=== PATIENT | female | born 1990 | race Caucasian/White ===

== ENCOUNTER 2020-04-10 22:58 | Emergency (ER) | payer OTHER ==
[2020-04-10 23:08] VITALS: TEMP 98.8
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
[2020-04-11 00:06] VITALS: RESP 18
[2020-04-11 00:12] LABS: Basophils % (A) 0 %; Eosinophils # (A) 0.1 k/uL (0-0.7); Eosinophils % (A) 1 %; HCT 36.7 % (34.0-46.0); HGB 12.3 gm/dL (11.4-16.0); Lymphocytes # (A) 2.4 k/uL (1.0-4.8); Lymphocytes % (A) 23 %; MCH 27.8 pg (25.0-35.0); MCHC 33.6 g/dL (31.0-37.0); MCV 82.8 fL (80.0-100.0); Mean Platelet Volume 8.1; Monocytes # (A) 0.3 k/uL (0-1.0); Monocytes % (A) 3 %; Neutrophils # (A) 7.4 k/uL (1.3-7.7); Neutrophils % (A) 71 %; Platelet Count 227 k/uL (150-450); RBC 4.44 m/uL (3.80-5.40); WBC 10.4 k/uL (3.8-10.6)
[2020-04-11 00:19] LABS: INR 0.9 (<1.2); Partial Thromboplastin Time 24.2 sec (22.0-30.0); Prothrombin Time 9.5 sec (9.0-12.0)
[2020-04-11 00:21] LABS: ALT 18 U/L (4-34); AST 23 U/L (14-36); African American GFR (CKD) >90 (>60 ml/min/1.73 sqM); Albumin 3.6 g/dL (3.5-5.0); Alkaline Phosphatase 66 U/L (38-126); Anion Gap 6 mmol/L; Blood Urea Nitrogen 12 mg/dL (7-17); Calcium 9.5 mg/dL (8.4-10.2); Carbon Dioxide 24 mmol/L (22-30); Chloride 105 mmol/L (98-107); Glucose 95 mg/dL (74-99); Non-African American GFR(CKD) >90 (>60 ml/min/1.73 sqM); Potassium 4.3 mmol/L (3.5-5.1); Sodium 135 mmol/L (137-145); Total Bilirubin 0.4 mg/dL (0.2-1.3); Total Protein 6.9 g/dL (6.3-8.2)
--- NOTE | 2020-04-11 00:34 | US ---
EXAM: US , Transvaginal CLINICAL HISTORY: ITS.REASON US Reason: pain TECHNIQUE: Real-time transvaginal obstetrical ultrasound of the maternal pelvis and a first trimester with image documentation. Transvaginal imaging was used for better evaluation of the fetus and adnexa. COMPARISON: No relevant prior studies available. FINDINGS: Gestation: There is a single intrauterine gestational sac with crown- rump length measuring 50.86 mm consistent with 11 weeks 6 days gestation. The estimated date of delivery is October 24, 2020. survey is limited by massive body habitus. heart rate 147 bpm. Placenta/amniotic fluid: Cannot be adequately evaluated due to the early gestational age. Uterus/cervix: The uterus measures 14 x 8.2 x 9.6 cm, of 573 mL. No myometrial mass. Ovaries: Unremarkable. No mass. Free fluid: Both ovaries are obscured. No free fluid is seen. IMPRESSION: There is a single intrauterine gestational sac with crown-rump length measuring 50.86 mm consistent with 11 weeks 6 days gestation. The estimated date of delivery is October 24, 2020. Visualization is limited by body habitus.
[2020-04-11 01:07] VITALS: BP 155/100; PULSE 75
== END 2020-04-11 01:06 | disposition home or self-care (01) ==
LOC: EC 22:58 → SUPCPDRO 22:58 → EC 04-11 01:06
DX: O46.91 Antepartum hemorrhage, unspecified, first trimester (principal); Z3A.12 12 weeks gestation of pregnancy; Z87.891 Personal history of nicotine dependence; Z88.1 Allergy status to other antibiotic agents
CPT/HCPCS: 36415; 76801; 76817; 80053; 85025; 85610; 85730; 86900; 86901; 99284

== ENCOUNTER 2020-06-02 18:43 | Emergency (ER) | payer OTHER ==
[2020-06-02 18:58] VITALS: BP 108/62; PULSE 87; RESP 18; TEMP 98.9
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
[2020-06-02 20:01] LABS: Amphetamine Screen,Urine Not Detected (NotDetected); Barbiturate Screen,Urine Not Detected (NotDetected); Benzodiazepines Screen,Urine Not Detected (NotDetected); Cocaine Screen,Urine Not Detected (NotDetected); Methadone Screen, Urine Not Detected (NotDetected); Opiate Screen,Urine Not Detected (NotDetected); Oxycodone Screen, Urine Not Detected (NotDetected); Phencyclidine Screen,Urine Not Detected (NotDetected); Tricyclic Antidepressant,Urine Not Detected (NotDetected); Urn Cannabinoid Scrn Not Detected (NotDetected)
== END 2020-06-02 21:20 | disposition home or self-care (01) ==
LOC: EC 18:43
DX: O99.342 Other mental disorders complicating pregnancy, second trimester (principal); F69 Unspecified disorder of adult personality and behavior; Z3A.20 20 weeks gestation of pregnancy; Z88.1 Allergy status to other antibiotic agents; Z87.891 Personal history of nicotine dependence
CPT/HCPCS: 80306; 82075; 99285

== ENCOUNTER 2020-09-05 12:47 | Outpatient (CLI) | payer OTHER ==
[2020-09-05 14:37] LABS: Amorphous Sediment,Urine Rare /hpf; Appearance,Urine Cloudy (Clear); Bacteria,Urine Occasional /hpf; Bilirubin,Urine Negative (Negative); Blood,Urine Negative (Negative); Color,Urine Yellow; Glucose,Urine (UA) Negative (Negative); Ketones,Urine Negative (Negative); Leukocyte Esterase,Urine Negative (Negative); Mucus,Urine Rare /hpf; Nitrite,Urine Negative (Negative); PH, Urine 6.5 (5.0-8.0); Protein,Urine Negative (Negative); RBC,Urine 2 /hpf (0-5); Specific Gravity,Urine 1.016 (1.001-1.035); Squamous Epithelial Cell,Urine 6 /hpf (0-4); Urobilinogen,Urine <2.0 mg/dL (<2.0); WBC,Urine 3 /hpf (0-5)
--- NOTE | 2020-09-05 14:40 | US ---
EXAMINATION TYPE: US OB limited DATE OF EXAM: 09/05/2020 COMPARISON: For trimester ultrasound April 10, 2020 CLINICAL HISTORY: Heart tones, and fluid level . Morbidly obese patient with back pain and vagi nal discharge EXAM PERFORMED: OBTA GESTATIONAL AGE / DATING Physician Established: (32 weeks/5 days) EDC: 10/26/2020 No growth performed on today?s study per ordering physician SURVEY ALEXSANDRA: 22.5 cm Ultrasound evidence of premature rupture of membranes? no HEART RATE: 139 bpm RHYTHM: Normal Difficult to image due to obesity of patient Suboptimal study due to body habitus. Single live intrauterine gestation redemonstrated. Calculated a mniotic fluid index upper limits of normal to slightly increased. No placenta previa. Transverse lie currently noted during real-time scanning. IMPRESSION: As above.
[2020-09-05 15:20] VITALS: BP 137/63; PULSE 96; RESP 18; TEMP 98.2
--- NOTE | 2020-09-22 11:25 | P.MSEPDOC ---
Presenting Problems - Arrival Data Date of Arrival on Unit: 09/05/20 Time of Arrival on Unit: 15:09 Mode of Transport: Ambulatory - Complaint OB-Reason for Admission/Chief Complaint: Possible Onset of Labor Comment: Patient presents with contrations that are about 2 minutes apart since 1130 am. Patient states she has also noted some spotting. Patient is a DOM, story is unclear as to who is her actual physician and patient has not seen a doctor in one month. Medical History - Information : 4 Para: 1 Term: 1 : 0 Abortions: Spontaneous or Elective: 2 Number of Living Children: 1 - Gestational Age Gestational Age by HANSA (wks/days): 32 Weeks and 5 Days - History Complications: Prior Comment: Patient is obese, patient states she is high risk because she is overweight and has bipolar disorder. Review of Systems - Review of Systems Constitutional: No problems Breast: No problems ENT: No problems Cardiovascular: No problems Respiratory: No problems Gastrointestinal: No problems Genitourinary: No problems Musculoskeletal: No problems Neurological: No problems Skin: No problems Vital Signs - Temperature Temperature: 98.2 F Temperature Source: Temporal Artery Scan - Pulse Pulse Oximetery Pulse Rate: 96 Pulse Assessment Method: Automatic Cuff - Respirations Respiratory Rate: 18 Oxygen Delivery Method: Room Air - Blood Pressure Sitting Blood Pressure: 137/63 Blood Pressure Mean: 87 Blood Pressure Source: Automatic Cuff Medical Screen Scoring (Pre) - Cervical Exam Dilation: 0 cm = 0 Membranes: Intact - Uterine Contractions Frequency: N/A Duration: N/A Intensity: N/A - Maternal Vital Signs Maternal Temperature: N/A Maternal Blood Pressure: N/A Signs of Preeclampsia: N/A Maternal Respirations: N/A - Maternal Trauma Maternal Trauma: N/A - Assessment - Baby A Baseline FHR: 145 Heart Rate - NICHD Category: Category I (Normal) = 0 - Total Score - Baby A Total Score - Baby A: 0 - Total Score - Baby B Total Score - Baby B: 0 - Total Score - Baby C Total Score - Baby C: 0 - Level of Risk - Baby A Level of Risk - Baby A: Low (0-5) - Level of Risk - Baby B Level of Risk - Baby B: Low (0-5) - Level of Risk - Baby C Level of Risk - Baby C: Low (0-5) Physician Notification (Pre) - Physician Notified Physician Notified Date: 09/05/20 Physician Notified Time: 15:09 New Order Received: Yes - Notification Comment Comment: 1333: Orders given to collect and send UA and FFN, Check cervix, and order a bedside U/S for heart tones and fluid level due to inability to obtain an NST due to maternal weight. 1503: Orders given to discharge patient home with instructions and encourage patient to follow up with her physician. Disposition - Disposition OB Disposition: Discharge to home, Written follow up instructions reviewed Discharge Date: 09/05/20 Discharge Time: 15:09 I agree with the RN Medical Screening Exam: Yes Case reviewed; plan agreed upon as documented in EMR&OBIX.: Yes Diagnosis: FALSE LABOR BEFORE 37 COMPLETED WEEKS OF GEST, THIRD TRI
== END 2020-09-05 15:09 | disposition home or self-care (01) ==
LOC: FBPOP 12:47
PROVIDERS: ATTEND Obstetrics & Gynecology
DX: O47.03 False labor before 37 completed weeks of gestation, third trimester (principal); O99.213 Obesity complicating pregnancy, third trimester; E66.01 Morbid (severe) obesity due to excess calories; Z3A.32 32 weeks gestation of pregnancy; Z88.1 Allergy status to other antibiotic agents
CPT/HCPCS: 82731; 81001; 76815; G0463; 99213

== ENCOUNTER 2020-10-02 21:57 | Outpatient (CLI) | payer OTHER ==
--- NOTE | 2020-10-02 22:34 | P.PN ---
Progress Note - Text Progress Note Date: 10/02/20 This is a 30-year-old 4 para 10-1 woman with an estimated due date of 10/26/2020 making her 36-6/7 weeks' gestation. She presents to labor and delivery triage complaining of bilateral lower back pain and bilateral lower abdominal pain for the last 24-48 hours. She receives care at [facility] and denies any problems in the . She denies contractions, leakage of fluids, vaginal bleeding, nausea, vomiting, diarrhea, fevers, chills, dysuria or hematuria. She has severe constipation with no bowel movement 3 days. She has felt movement earlier in the day. She has morbid obesity and states that her providers are only able to find heart tones by ultrasound. She denies other competitions at the specifically hypertension or gestational diabetes. She is on Seroquel for bipolar disorder. She did have a previous 14 years ago and was hoping to have a trial of labor after . On examination this is a morbidly obese female who appears short of breath. On examination the abdomen is obese with very large pannus however it is soft and nontender. She has no CVAT tenderness. On pelvic examination the cervix is closed, 70% effaced and there is uncertain presenting part not well engaged. We are able to auscultate heart tones by hand-held Doppler. The hand-held ultrasound was also utilized. Active movement movement was noted. cardiac activity was noted and heart rate approximately 150 bpm. The external Doppler for NST however was not able to crop picker a heart rate tracing. Assessment: 30-year-old 4 para 10-1 woman at 36-6/7 weeks gestation complaining of back pain and lower abdominal cramping. She has significant constipation. No evidence of labor. Her cervix is closed. She has an appointment Issac scheduled tomorrow at her regular provider at [facility]. She is encouraged to keep this appointment. Return to the hospital with any vaginal bleeding, leakage of fluids, decreased movement or severe abdominal or pelvic pain. Greater than 30 minutes was spent in bedside evaluation by myself.
[2020-10-03 00:28] VITALS: BP 142/67; PULSE 100; RESP 18; TEMP 98.1
== END 2020-10-02 22:45 | disposition home or self-care (01) ==
LOC: FBPOP 21:57
PROVIDERS: ATTEND Obstetrics & Gynecology
DX: O99.891 Other specified diseases and conditions complicating pregnancy (principal); M54.5 Low back pain; O99.613 Diseases of the digestive system complicating pregnancy, third trimester; K59.00 Constipation, unspecified; Z3A.36 36 weeks gestation of pregnancy; Z88.1 Allergy status to other antibiotic agents
CPT/HCPCS: 99213

== ENCOUNTER 2020-10-15 15:45 | Emergency (ER) | payer OTHER ==
[2020-10-15 15:53] VITALS: TEMP 97.9
--- NOTE | 2020-10-15 16:31 | ED ---
General Adult HPI - General Chief complaint: Recheck/Abnormal Lab/Rx Stated complaint: preeclampsia Time Seen by Provider: 10/15/20 16:22 Source: patient, RN notes reviewed, old records reviewed Mode of arrival: ambulatory Limitations: no limitations - History of Present Illness Initial comments: 30-year-old female , 4 days presenting for evaluation of lower leg swelling and headache. Patient was diagnosed with preeclampsia as well as hypertension during her . She delivered by section 5 days ago. She had left [place] AGAINST MEDICAL ADVICE. She is currently on antibiotic for UTI and labetalol. Uncertain of the dose. She states that she's had some frontal headache and swelling in both legs over the past several days. She was instructed to return to the hospital with these symptoms for evaluation. - Related Data Home Medications Medication Instructions Recorded Confirmed FLUoxetine HCL 40 mg PO DAILY 09/05/20 10/02/20 Pnv No.95/Ferrous Fum/Folic AC 1 each PO DAILY 09/05/20 10/02/20 [ Multivitamin Tablet] QUEtiapine [SEROquel] 100 mg PO DAILY 09/05/20 10/02/20 Allergies Allergy/AdvReac Type Severity Reaction Status Date / Time vancomycin Allergy Rash/Hives Verified 10/15/20 15:53 Review of Systems ROS Statement: Those systems with pertinent positive or pertinent negative responses have been documented in the HPI. ROS Other: All systems not noted in ROS Statement are negative. Past Medical History Past Medical History: Fibromyalgia Additional Past Medical History / Comment(s): Arthritis, preclamsia History of Any Multi-Drug Resistant Organisms: MRSA Date of last positivie culture/infection: 2011 MDRO Source:: Under arm Past Surgical History: Appendectomy, Section, Tonsillectomy Additional Past Surgical History / Comment(s): spinal taps Past Psychological History: Anxiety, Bipolar, Depression Smoking Status: Never smoker Past Alcohol Use History: None Reported Past Drug Use History: None Reported General Exam Limitations: no limitations General appearance: alert, in no apparent distress Head exam: Present: atraumatic, normocephalic Eye exam: Present: normal appearance, PERRL ENT exam: Present: normal exam Neck exam: Present: normal inspection. Absent: tenderness, meningismus Respiratory exam: Present: normal lung sounds bilaterally. Absent: respiratory distress, wheezes Cardiovascular Exam: Present: regular rate, normal rhythm GI/Abdominal exam: Present: soft, tenderness (Mild epigastric tenderness). Absent: distended, guarding, rebound Extremities exam: Present: normal capillary refill, pedal edema (Trace) Neurological exam: Present: alert, oriented X3, CN II-XII intact. Absent: motor sensory deficit Psychiatric exam: Present: normal affect, normal mood Skin exam: Present: warm, dry, intact. Absent: cyanosis, diaphoretic Course Vital Signs 10/15/20 15:49 Temperature 97.9 F Pulse Rate 82 Respiratory 18 Rate Blood Pressure 125/75 O2 Sat by Pulse 98 Oximetry EKG Findings - EKG Comments: EKG Findings:: EKG: Normal sinus rhythm, rate of 81, [place] interval 194, QRS duration 96, QTC [address] segment elevation. Medical Decision Making - Medical Decision Making 30-year-old female with mild headache, lower extremity edema, treated for preeclampsia, 4 days , . Patient's has no lower abdominal pain. No fever. She has some trace edema on exam. She has a nonfocal neurologic exam. Laboratory testing reveals hemoglobin 10.1 stable . She has an AST of 48 normal ALT, normal LDH, normal electrolytes. She has a trace protein but is currently being treated for UTI with positive red cells and white cells in the urine. Chest x-ray is clear. EKG sinus rhythm. She will continue to follow as an outpatient with her high school biology teacher. She does request a primary care physician and is currently trying to establish a new high school biology teacher, Dr. Lou is who she requests. I did discuss presentation and workup with Dr. Yarbrough was currently on-call for OB and agrees with discharge and outpatient follow-up at this time. - Lab Data Result diagrams: 10/15/20 16:37 10/15/20 16:37 Lab Results 10/15/20 10/15/20 10/15/20 Range/Units 16:37 16:37 16:37 WBC 9.8 (3.8-10.6) k/uL RBC 3.70 L (3.80-5.40) m/uL Hgb 10.1 L (11.4-16.0) gm/dL Hct 30.1 L (34.0-46.0) % MCV 81.3 (80.0-100.0) fL MCH 27.3 (25.0-35.0) pg MCHC 33.6 (31.0-37.0) g/dL RDW 14.4 (11.5-15.5) % Plt Count 273 (150-450) k/uL MPV 8.1 Neutrophils % 72 % Lymphocytes % 20 % Monocytes % 4 % Eosinophils % 2 % Basophils % 0 % Neutrophils # 7.1 (1.3-7.7) k/uL Lymphocytes # 2.0 (1.0-4.8) k/uL Monocytes # 0.4 (0-1.0) k/uL Eosinophils # 0.2 (0-0.7) k/uL Basophils # 0.0 (0-0.2) k/uL PT 9.6 (9.0-12.0) sec INR 0.9 (<1.2) APTT 23.8 (22.0-30.0) sec Sodium (137-145) mmol/L Potassium (3.5-5.1) mmol/L Chloride (98-107) mmol/L Carbon Dioxide (22-30) mmol/L Anion Gap mmol/L BUN (7-17) mg/dL Creatinine (0.52-1.04) mg/dL Est GFR (CKD-EPI)AfAm (>60 ml/min/1.73 sqM) Est GFR (CKD-EPI)NonAf (>60 ml/min/1.73 sqM) Glucose (74-99) mg/dL Uric Acid (3.7-7.4) mg/dL Calcium (8.4-10.2) mg/dL Magnesium (1.6-2.3) mg/dL Total Bilirubin (0.2-1.3) mg/dL AST (14-36) U/L ALT (4-34) U/L Alkaline Phosphatase (38-126) U/L Lactate Dehydrogenase (313-618) U/L Troponin I (0.000-0.034) ng/mL NT-Pro-B Natriuret Pep pg/mL Total Protein (6.3-8.2) g/dL Albumin (3.5-5.0) g/dL Urine Color Yellow Urine Appearance Clear (Clear) Urine pH 6.0 (5.0-8.0) Ur Specific [place] 1.021 (1.001-1.035) Urine Protein Trace H (Negative) Urine Glucose (UA) Negative (Negative) Urine Ketones Negative (Negative) Urine Blood Large H (Negative) Urine Nitrite Negative (Negative) Urine Bilirubin Negative (Negative) Urine Urobilinogen <2.0 (<2.0) mg/dL Ur Leukocyte Esterase Moderate H (Negative) Urine RBC 76 H (0-5) /hpf Urine WBC 29 H (0-5) /hpf Ur Squamous Epith Cells 4 (0-4) /hpf Urine Mucus Rare H (None) /hpf 10/15/20 10/15/20 10/15/20 Range/Units 16:37 16:37 16:37 WBC (3.8-10.6) k/uL RBC (3.80-5.40) m/uL Hgb (11.4-16.0) gm/dL Hct (34.0-46.0) % MCV (80.0-100.0) fL MCH (25.0-35.0) pg MCHC (31.0-37.0) g/dL RDW (11.5-15.5) % Plt Count (150-450) k/uL MPV Neutrophils % % Lymphocytes % % Monocytes % % Eosinophils % % Basophils % % Neutrophils # (1.3-7.7) k/uL Lymphocytes # (1.0-4.8) k/uL Monocytes # (0-1.0) k/uL Eosinophils # (0-0.7) k/uL Basophils # (0-0.2) k/uL PT (9.0-12.0) sec INR (<1.2) APTT (22.0-30.0) sec Sodium 138 (137-145) mmol/L Potassium 4.6 (3.5-5.1) mmol/L Chloride 107 (98-107) mmol/L Carbon Dioxide 24 (22-30) mmol/L Anion Gap 7 mmol/L BUN 14 (7-17) mg/dL Creatinine 0.59 (0.52-1.04) mg/dL Est GFR (CKD-EPI)AfAm >90 (>60 ml/min/1.73 sqM) Est GFR (CKD-EPI)NonAf >90 (>60 ml/min/1.73 sqM) Glucose 94 (74-99) mg/dL Uric Acid 6.8 (3.7-7.4) mg/dL Calcium 9.4 (8.4-10.2) mg/dL Magnesium 1.7 (1.6-2.3) mg/dL Total Bilirubin 0.5 (0.2-1.3) mg/dL AST 48 H (14-36) U/L ALT 34 (4-34) U/L Alkaline Phosphatase 122 (38-126) U/L Lactate Dehydrogenase 576 (313-618) U/L Troponin I <0.012 (0.000-0.034) ng/mL NT-Pro-B Natriuret Pep 371 pg/mL Total Protein 5.9 L (6.3-8.2) g/dL Albumin 3.1 L (3.5-5.0) g/dL Urine Color Urine Appearance (Clear) Urine pH (5.0-8.0) Ur Specific [place] (1.001-1.035) Urine Protein (Negative) Urine Glucose (UA) (Negative) Urine Ketones (Negative) Urine Blood (Negative) Urine Nitrite (Negative) Urine Bilirubin (Negative) Urine Urobilinogen (<2.0) mg/dL Ur Leukocyte Esterase (Negative) Urine RBC (0-5) /hpf Urine WBC (0-5) /hpf Ur Squamous Epith Cells (0-4) /hpf Urine Mucus (None) /hpf Disposition Clinical Impression: care and examination, Dependent edema Disposition: HOME SELF-CARE Condition: Good Instructions (If sedation given, give patient instructions): Leg Edema (ED) Additional Instructions: Please return with worsening or changing symptoms. Please follow up with your high school biology teacher. You have been given a referral to primary care. Is patient prescribed a controlled substance at d/c from ED?: No Referrals: Nonstaff,Physician [Primary Care Provider] - 1-2 days Arnav Pablo [STAFF PHYSICIAN] - 1-2 days Jazmín Lou DO [Doctor of Osteopathic Medicine] - 1-2 days
[2020-10-15 17:07] LABS: Appearance,Urine Clear (Clear); Basophils % (A) 0 %; Bilirubin,Urine Negative (Negative); Blood,Urine Large (Negative); Color,Urine Yellow; Eosinophils # (A) 0.2 k/uL (0-0.7); Eosinophils % (A) 2 %; Glucose,Urine (UA) Negative (Negative); HCT 30.1 % (34.0-46.0); HGB 10.1 gm/dL (11.4-16.0); Ketones,Urine Negative (Negative); Leukocyte Esterase,Urine Moderate (Negative); Lymphocytes % (A) 20 %; MCH 27.3 pg (25.0-35.0); MCHC 33.6 g/dL (31.0-37.0); MCV 81.3 fL (80.0-100.0); Mean Platelet Volume 8.1; Monocytes # (A) 0.4 k/uL (0-1.0); Monocytes % (A) 4 %; Mucus,Urine Rare /hpf; Neutrophils # (A) 7.1 k/uL (1.3-7.7); Neutrophils % (A) 72 %; Nitrite,Urine Negative (Negative); Platelet Count 273 k/uL (150-450); Protein,Urine Trace (Negative); RBC,Urine 76 /hpf (0-5); RDW 14.4 % (11.5-15.5); Specific Gravity,Urine 1.021 (1.001-1.035); Squamous Epithelial Cell,Urine 4 /hpf (0-4); Urobilinogen,Urine <2.0 mg/dL (<2.0); WBC 9.8 k/uL (3.8-10.6); WBC,Urine 29 /hpf (0-5)
[2020-10-15 17:13] LABS: ALT 34 U/L (4-34); AST 48 U/L (14-36); African American GFR (CKD) >90 (>60 ml/min/1.73 sqM); Albumin 3.1 g/dL (3.5-5.0); Alkaline Phosphatase 122 U/L (38-126); Anion Gap 7 mmol/L; Blood Urea Nitrogen 14 mg/dL (7-17); Calcium 9.4 mg/dL (8.4-10.2); Carbon Dioxide 24 mmol/L (22-30); Chloride 107 mmol/L (98-107); Glucose 94 mg/dL (74-99); LDH 576 U/L (313-618); Magnesium 1.7 mg/dL (1.6-2.3); Non-African American GFR(CKD) >90 (>60 ml/min/1.73 sqM); Potassium 4.6 mmol/L (3.5-5.1); Sodium 138 mmol/L (137-145); Total Bilirubin 0.5 mg/dL (0.2-1.3); Total Protein 5.9 g/dL (6.3-8.2); Uric Acid 6.8 mg/dL (3.7-7.4)
[2020-10-15 17:16] LABS: INR 0.9 (<1.2); Partial Thromboplastin Time 23.8 sec (22.0-30.0); Prothrombin Time 9.6 sec (9.0-12.0)
--- NOTE | 2020-10-15 17:31 | XR ---
EXAMINATION TYPE: XR chest 2V DATE OF EXAM: 10/15/2020 COMPARISON: NONE HISTORY: Chest pain TECHNIQUE: 2 views FINDINGS: Heart and mediastinum are normal. Lungs are clear. Diaphragm is normal. Bony thorax is inta ct. IMPRESSION: Normal chest. Normal heart.
[2020-10-15 18:24] VITALS: BP 134/62; PULSE 76; RESP 16
== END 2020-10-15 18:31 | disposition home or self-care (01) ==
LOC: EC 15:45
DX: Z39.2 Encounter for routine postpartum follow-up (principal); O14.05 Mild to moderate pre-eclampsia, complicating the puerperium; O99.345 Other mental disorders complicating the puerperium; F31.9 Bipolar disorder, unspecified; F41.9 Anxiety disorder, unspecified
CPT/HCPCS: 36415; 71046; 80053; 81001; 83615; 83735; 83880; 84484; 84550; 85025; 85610; 85730; 87086; 93005; 99284

== ENCOUNTER 2020-10-22 14:52 | Emergency (ER) | payer OTHER ==
[2020-10-22 15:16] VITALS: TEMP 98.8
--- NOTE | 2020-10-22 15:42 | ED ---
General Adult HPI - General Chief complaint: Recheck/Abnormal Lab/Rx Stated complaint: Stomach miky infected Time Seen by Provider: 10/22/20 15:42 Source: patient Mode of arrival: ambulatory Limitations: no limitations - History of Present Illness Initial comments: Patient states that she is 11 days status post , and she believes that her incision is infected. Patient states for the past 3 days she has been experiencing pain and redness to her incision. Patient denies fever or wound/incision drainage. 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 Patient states that she was told by [facility] to follow-up with an OB doctor here in [place] for postoperative care and staple removal, but she states that she has not been able to schedule an appointment with an OB doctor here in [place] as of yet. Patient states that she has been having decreasing vaginal bleeding since her . Patient denies trauma or injury, fever or chills, headache, chest pain, dyspnea, cough or cold symptoms, dizziness, abdominal pain, nausea or vomiting, diarrhea or constipation, dysuria or urinary symptoms, or any other symptoms or complaints. - Related Data Home Medications Medication Instructions Recorded Confirmed FLUoxetine HCL 40 mg PO DAILY 09/05/20 10/22/20 QUEtiapine [SEROquel] 100 mg PO HS 09/05/20 10/22/20 Albuterol Sulfate [Proair Hfa] 1 - 2 puff INHALATION RT-Q6H PRN 10/22/20 10/22/20 Ferrous Sulfate [Feosol] 325 mg PO BID 10/22/20 10/22/20 Fluticasone/Salmeterol [Advair 1 puff INHALATION RT-BID PRN 10/22/20 10/22/20 100-50 Diskus] Labetalol HCl 200 mg PO DAILY 10/22/20 10/22/20 OXcarbazepine [Trileptal] 150 mg PO BID 10/22/20 10/22/20 Previous Rx's Medication Instructions Recorded Cephalexin [Keflex] 500 mg PO QID 10 Days #40 cap 10/22/20 Allergies Allergy/AdvReac Type Severity Reaction Status Date / Time vancomycin Allergy Rash/Hives Verified 10/22/20 15:12 Review of Systems ROS Statement: Those systems with pertinent positive or pertinent negative responses have been documented in the HPI. ROS Other: All systems not noted in ROS Statement are negative. Past Medical History Past Medical History: Fibromyalgia Additional Past Medical History / Comment(s): Arthritis, preclamsia History of Any Multi-Drug Resistant Organisms: MRSA Date of last positivie culture/infection: 2011 MDRO Source:: Under arm Past Surgical History: Appendectomy, Section, Tonsillectomy Additional Past Surgical History / Comment(s): spinal taps Past Psychological History: Anxiety, Bipolar, Depression Smoking Status: Never smoker Past Alcohol Use History: None Reported Past Drug Use History: None Reported General Exam Limitations: no limitations General appearance: alert, in no apparent distress Head exam: Present: atraumatic, normocephalic Eye exam: Present: normal appearance, EOMI ENT exam: Present: mucous membranes moist Neck exam: Present: other (Trachea is in midline) Respiratory exam: Present: normal lung sounds bilaterally. Absent: respiratory distress, wheezes, rales, rhonchi, stridor Cardiovascular Exam: Present: regular rate, normal rhythm, normal heart sounds, other (Normal radial pulses bilaterally) GI/Abdominal exam: Present: soft, other (Obese abdomen; midline surgical C- section incision has miky in place and is noted to have mild surrounding erythema and tenderness; no incision/wound drainage is noted). Absent: distended, guarding Extremities exam: Absent: tenderness, pedal edema, calf tenderness Neurological exam: Present: alert, oriented X3. Absent: motor sensory deficit Psychiatric exam: Present: normal affect, normal mood Skin exam: Present: warm, dry, normal color Course Vital Signs 10/22/20 15:13 Temperature 98.8 F Pulse Rate 67 Respiratory 16 Rate Blood Pressure 107/71 O2 Sat by Pulse 100 Oximetry - Reevaluation(s) Reevaluation #1: 10/22/20 15:58 Case and H&P were discussed with Dr. Ryan (OBGYN). He recommends removing the patient's miky in the ED given that she is 11 days status post . He also recommends starting the patient on a course of Keflex. He recommends having the patient follow up with her OB doctor at [facility] given they did the there and she is a business continuity analyst patient. He states that if the patient is absolutely unable to or refusing to go back to [facility] for follow-up care, he can see the patient in his clinic for a one-time visit for follow-up of her wound infection. He has no further recommendations at this time. Procedures - Procedures Initial comment: 25 miky were removed from the patient's incisional wound myself without complication after obtaining the patient's verbal consent. Medical Decision Making - Medical Decision Making Patient is aware of my discussion with Dr. Ryan (OBGYN) as documented. She was instructed to follow up closely with her SHELTER CASE MANAGER doctor at [facility], but if she is absolutely unable to get there, I advised that she contact Dr. Ryan's office for a one-time follow-up appointment. Patient was also instructed to return to the ED should she develop increased incisional wound redness or pain, wound drainage, a fever, feeling dizzy or faint, shortness of breath, or new or worsening symptoms. Patient was given a dose of oral Keflex in the ED, and will discharge her home with a prescription for a ten-day course of oral Keflex. Patient is afebrile and with reassuring vital signs in the ED. Patient was counseled about incision/wound infections, and she was clearly explained return and follow-up instructions. Patient feels comfortable with this plan. Disposition Clinical Impression: Incisional infection Disposition: HOME SELF-CARE Condition: Stable Instructions (If sedation given, give patient instructions): Wound Infection (ED) Additional Instructions: Return to the ER immediately should you develop increased redness or pain around your wound, drainage of pus from your wound, a fever, feeling dizzy or faint, shortness of breath, or new or worsening symptoms. Follow up closely with your SHELTER CASE MANAGER doctor at [facility]. Prescriptions: Cephalexin [Keflex] 500 mg PO QID 10 Days #40 cap Is patient prescribed a controlled substance at d/c from ED?: No Referrals: Nonstaff,Physician [REFERRING] - 1-2 days Ross Ryan DO [Doctor of Osteopathic Medicine] - 1-2 days Time of Disposition: 16:51
[2020-10-22] MEDS ORDERED: CEPHALEXIN 500 MG CAP PO STA (16:12)
[2020-10-22 17:51] VITALS: RESP 18
[2020-10-22 18:24] VITALS: BP 115/69; PULSE 69
== END 2020-10-22 17:02 | disposition home or self-care (01) ==
LOC: EC 14:52
DX: O86.01 Infection of obstetric surgical wound, superficial incisional site (principal); Z48.02 Encounter for removal of sutures; Z88.1 Allergy status to other antibiotic agents
CPT/HCPCS: 99283

== ENCOUNTER 2021-02-24 12:01 | Emergency (ER) | payer OTHER ==
[2021-02-24 13:00] VITALS: BP 109/55; PULSE 82; RESP 18; TEMP 98.1
--- NOTE | 2021-02-24 14:30 | ED ---
General Adult HPI - General Chief complaint: Recheck/Abnormal Lab/Rx Stated complaint: Cough,Nausea Time Seen by Provider: 02/24/21 14:24 Source: patient, RN notes reviewed Mode of arrival: ambulatory Limitations: no limitations - History of Present Illness Initial comments: 30-year-old female presents emergency Department with chief complaint of cough congestion. Patient has been sick for last 1 month. Patient states she has productive cough. Patient states that she has runny nose, sore throat. Patient is otherwise healthy. Patient offers no complaints. - Related Data Home Medications Medication Instructions Recorded Confirmed FLUoxetine HCL 40 mg PO DAILY 09/05/20 10/22/20 QUEtiapine [SEROquel] 100 mg PO HS 09/05/20 10/22/20 Albuterol Sulfate [Proair Hfa] 1 - 2 puff INHALATION RT-Q6H PRN 10/22/20 10/22/20 Ferrous Sulfate [Feosol] 325 mg PO BID 10/22/20 10/22/20 Fluticasone/Salmeterol [Advair 1 puff INHALATION RT-BID PRN 10/22/20 10/22/20 100-50 Diskus] Labetalol HCl 200 mg PO DAILY 10/22/20 10/22/20 OXcarbazepine [Trileptal] 150 mg PO BID 10/22/20 10/22/20 Previous Rx's Medication Instructions Recorded Cephalexin [Keflex] 500 mg PO QID 10 Days #40 cap 10/22/20 Azithromycin [Zithromax Z-pack (6 0 mg PO DIRECTED #1 packet 02/24/21 tabs)] predniSONE 50 mg PO DAILY #5 tab 02/24/21 Allergies Allergy/AdvReac Type Severity Reaction Status Date / Time vancomycin Allergy Rash/Hives Verified 02/24/21 12:58 Review of Systems ROS Statement: Those systems with pertinent positive or pertinent negative responses have been documented in the HPI. ROS Other: All systems not noted in ROS Statement are negative. Past Medical History Past Medical History: Fibromyalgia Additional Past Medical History / Comment(s): Arthritis, preclamsia History of Any Multi-Drug Resistant Organisms: MRSA Date of last positivie culture/infection: 2011 MDRO Source:: Under arm Past Surgical History: Appendectomy, Section, Tonsillectomy Additional Past Surgical History / Comment(s): spinal taps Past Psychological History: Anxiety, Bipolar, Depression Smoking Status: Never smoker Past Alcohol Use History: None Reported Past Drug Use History: None Reported General Exam Limitations: no limitations General appearance: alert, in no apparent distress Head exam: Present: atraumatic, normocephalic, normal inspection Eye exam: Present: normal appearance, PERRL, EOMI. Absent: scleral icterus, conjunctival injection, periorbital swelling ENT exam: Present: normal exam, normal oropharynx, mucous membranes moist Neck exam: Present: normal inspection, full ROM. Absent: tenderness, meningismus, lymphadenopathy Respiratory exam: Present: normal lung sounds bilaterally. Absent: respiratory distress, wheezes, rales, rhonchi, stridor Cardiovascular Exam: Present: regular rate, normal rhythm, normal heart sounds. Absent: systolic murmur, diastolic murmur, rubs, gallop, clicks GI/Abdominal exam: Present: soft, normal bowel sounds. Absent: distended, tenderness, guarding, rebound, rigid Course Vital Signs 02/24/21 12:58 Temperature 98.1 F Pulse Rate 82 Respiratory 18 Rate Blood Pressure 109/55 O2 Sat by Pulse 97 Oximetry Medical Decision Making - Lab Data Lab Results 02/24/21 Range/Units 12:58 Coronavirus (PCR) Not Detected (Not Detectd) Disposition Clinical Impression: URI (upper respiratory infection) Disposition: HOME SELF-CARE Condition: Stable Instructions (If sedation given, give patient instructions): Upper Respiratory Infection (ED) Additional Instructions: Please return to the Emergency Department if symptoms worsen or any other concerns. Prescriptions: predniSONE 50 mg PO DAILY #5 tab Azithromycin [Zithromax Z-pack (6 tabs)] 0 mg PO DIRECTED #1 packet Is patient prescribed a controlled substance at d/c from ED?: No Referrals: Nicho Villa DO [Primary Care Provider] - 1-2 days Time of Disposition: 14:30
== END 2021-02-24 14:38 | disposition home or self-care (01) ==
LOC: EC 12:01
DX: J06.9 Acute upper respiratory infection, unspecified (principal); F31.9 Bipolar disorder, unspecified; F41.9 Anxiety disorder, unspecified
CPT/HCPCS: 87635; 99283